=== PATIENT | male | born 1975 | race Caucasian/White ===

== ENCOUNTER → 2023-07-26 16:17 | Outpatient (REF) | payer OTHER, SELFPAY | LOC: HWRAD 16:17 | PROVIDERS: ATTENDING PHYSICIAN Physician Assistant Medical | DX: J45.20 Mild intermittent asthma, uncomplicated (principal); Z11.52 Encounter for screening for COVID-19; J06.9 Acute upper respiratory infection, unspecified; R05.1 Acute cough; R50.9 Fever, unspecified | CPT/HCPCS: 71046 ==

== ENCOUNTER → 2023-09-27 06:19 | Day surgery (SDC) | payer OTHER, SELFPAY | LOC: GI 06:19 | PROVIDERS: ATTENDING PHYSICIAN Internal Medicine Gastroenterology | DX: Z12.11 Encounter for screening for malignant neoplasm of colon (principal) | CPT/HCPCS: G0121 ==